=== PATIENT | female | born 1980 | race Caucasian/White ===

== ENCOUNTER 2020-03-07 06:40 | Emergency (ER) | payer OTHER, SELFPAY ==
[2020-03-07 06:46] VITALS: BP 141/87; PULSE 77; RESP 16; TEMP 37.2; O2SAT 100
--- NOTE | 2020-03-07 07:17 | ED.ALLEREA ---
HPI - Allergic Reaction General Chief complaint: Allergic Reaction Stated complaint: severe hives Time Seen by Provider: 03/07/20 07:07 Source: RN notes reviewed History of Present Illness HPI narrative: Patient presents emergency department from home for allergic reaction. Patient states that 3 days ago she had eaten a flaxseed muffin and following this he developed hives. She states that the hives have been itching at that time she done telemedicine and placed on prednisone. States that the hives continue to worsen and that she had called a friend and had been placed on a higher dose of steroids 20 mg daily. Patient dates she continues to have diffuse hives with itching. She denies any swelling of the lips or tongue or denies any shortness of breath. She has no known drug allergies. She denies any fevers or chills chest pain or any other symptoms at this time Related Data Home Medications Medication Instructions Recorded Confirmed No Home Medications 03/07/20 03/07/20 Allergies Allergy/AdvReac Type Severity Reaction Status Date / Time cefdinir Allergy Hives Verified 03/07/20 07:33 Review of Systems Review of Systems: Narrative: Gen.: Denies fevers or chills Eyes: Denies eye pain or visual change ENT: Denies congestion Respiratory: Denies shortness of breath or cough CV: Denies chest pain or palpitations GI: Denies abdominal pain nausea, emesis or diarrhea Musculoskeletal: Denies back pain or muscle pain Neuro: Denies numbness, tingling, weakness or focal weakness Skin: Reports hives Except as documented, all other systems reviewed and negative [facility] Past Medical History Medical History (Updated 03/07/20 @ 11:36 by Anthony Akers DO) Patient denies significant medical history Social History Social History (Updated 03/07/20 @ 07:18 by Anthony Akers DO) Smoking status: Never smoker Exam Narrative: Exam Narrative: APPEARANCE: No acute distress, nontoxic, resting in bed EYES: EOMI HEENT: Normocephalic, atraumatic, OMM no swelling of the lips or tongue, airway patent no erythema exudate posterior pharynx, no lesions inside mouth RESPIRATORY: No respiratory distress Clear to auscultation bilaterally with no rhonchi wheezing or rales. CARDIOVASCULAR: Regular rate and rhythm without murmurs rubs or gallops. ABDOMINAL: Soft, nontender, nondistended, no rebound or guarding MUSCULOSKELETAl: Moves all extremities. No clubbing, cyanosis or edema. NEURO: Awake and alert. Following commands, speech normal, no focal deficits SKIN:: Warm, dry. Diffuse urticaria of the chest abdomen back and upper and lower extremities PSYCHIATRIC: Normal affect/mood, Course Course Emergency Course: Discussed with patient results of workup and diagnosis. Discussed need for follow-up with primary care, proper use of medication, and reasons to return to the emergency department. Patient understands and agrees to current treatment plan patient is currently on prednisone 20 mg twice a day and will continue for the next 5 days Vital Signs Vital signs: Vital Signs Temperature 98.9 F 03/07/20 06:46 Pulse Rate 77 03/07/20 06:46 Respiratory Rate 16 03/07/20 06:46 Blood Pressure 141/87 H 03/07/20 06:46 Pulse Oximetry 100 03/07/20 06:46 Temperature 98.9 F 03/07/20 06:46 Pulse Rate 70 03/07/20 10:56 Respiratory Rate 16 03/07/20 10:56 Blood Pressure 110/75 03/07/20 10:56 Pulse Oximetry 100 03/07/20 10:56 MDM - Allergic Reaction Lab Data Result diagrams: 03/07/20 09:11 03/07/20 09:11 Labs: Lab Results 03/07/20 03/07/20 Range/Units 09:11 09:11 WBC 16.4 H (4.5-10.0) K/mm3 RBC 5.01 (4.2-5.4) M/mm3 Hgb 14.8 (12.0-15.0) g/dL Hct 44.3 (37.0-47.0) % MCV 88.4 (80-100) fl MCH 29.5 (26-34) pg MCHC 33.4 (32-36) g/dl RDW 13.2 (11.5-14.5) % Plt Count 258 (150-375) k/mm3 MPV 10.8 H (7.4-10.4) fl Immature Gran % (Auto) 0.5 (
[2020-03-07] MEDS: predniSONE 20 MG TABLET 60 MG PO (07:46)
[2020-03-07] MEDS: FAMOTIDINE 20 MG TABLET PO (07:47)
[2020-03-07] MEDS: EPINEPHrine HCL INJ 1 MG/ML AMPUL 0.3 MG IM (08:45)
[2020-03-07 09:16] LABS: Basophils Absolute Auto 0.1 K/mm3 (0.0-0.1); Basophils Percent Auto 0.3 % (0.2-1.2); Eosinophils Percent Auto 0.1 % (0-4.4); Hematocrit 44.3 % (37.0-47.0); Hemoglobin 14.8 g/dL (12.0-15.0); Immature Granulocyte Absolute 0.08 K/mm3 (0.00-0.031); Immature Granulocyte Percent A 0.5 % (0-0.5); Lymphocytes Absolute Auto 2.12 K/mm3 (0.9-3.2); Lymphocytes Percent Auto 12.9 % (18.3-44.2); Mean Corpuscular HGB Conc 33.4 g/dl (32-36); Mean Corpuscular Hemoglobin 29.5 pg (26-34); Mean Corpuscular Volume 88.4 fl (80-100); Mean Platelet Volume 10.8 fl (7.4-10.4); Monocytes Absolute Auto 0.5 K/mm3 (0.1-0.6); Monocytes Percent Auto 3.1 % (2.6-8.5); Neutrophils Absolute Auto 13.7 K/mm3 (1.3-6.7); Neutrophils Percent Auto 83.1 % (45.5-73.1); Platelet Count Result 258 k/mm3 (150-375); Red Blood Count 5.01 M/mm3 (4.2-5.4); Red Cell Distribution Width 13.2 % (11.5-14.5); White Blood Count 16.4 K/mm3 (4.5-10.0)
[2020-03-07 09:28] LABS: Alanine Aminotransferase 15 U/L (4-35); Albumin Level 4.9 g/dL (3.5-5.1); Alkaline Phosphatase 80 U/L (38-126); Aspartate Amino Transferase 23 U/L (14-36); Blood Urea Nitrogen 16 mg/dL (7-17); Calcium 9.6 mg/dL (8.4-10.2); Carbon Dioxide 29 mmol/L (22-30); Chloride 101 mmol/L (98-107); Estimated Glomerular Filt Rate > 60; Glucose 95 mg/dL (65-105); Potassium 3.7 mmol/L (3.4-5.0); Sodium 140 mmol/L (137-145)
--- NOTE | 2020-03-07 10:20 | PC.NURSE ---
Patient still complains of severe itching. Hives noted to neck, trunk, and extremities.
[2020-03-07 10:56] VITALS: BP 110/75; PULSE 70; RESP 16; O2SAT 100
== END 2020-03-07 11:50 | disposition home or self-care (01) ==
PROVIDERS: Emergency Provider Emergency Medicine
DX: L50.9 Urticaria, unspecified (principal)
CPT/HCPCS: 36415; 80053; 85025; 87081; 87880; 96372; 96374; 99284; A9270; J0171; J1200; J7512